=== PATIENT | male | born 1975 | race Caucasian/White ===

== ENCOUNTER 2022-04-05 10:38 | Emergency (ER) | payer OTHER, BC, SELFPAY ==
[2022-04-05 10:39] VITALS: BP 154/95; PULSE 90; RESP 16; TEMP 36.6; O2SAT 98; BMI 32.3
--- NOTE | 2022-04-05 11:10 | RAD_ITS ---
STUDY: X-RAY CHEST REASON FOR EXAM: Male, 47 years old. Chest injury due to trauma. Left-sided chest pain. TECHNIQUE: PA and lateral views of the chest. COMPARISON: None. FINDINGS: The lungs are clear and expanded. Scattered calcified granulomas. There is no demonstrated pleural abnormality. Normal size heart. Calcified bilateral hilar lymph nodes. Normal visualized pulmonary arteries. Normal visualized aortic arch and descending thoracic aorta. Normal visualized thoracic spine. Normal visualized ribs, clavicles, and shoulders. There is no demonstrated abnormality of the visualized soft tissue structures of the upper abdomen. RAD/Chest PA and Lateral IMPRESSION: No acute abnormality is seen. Electronically Signed: Christian Hobbs MD at 11:26 [facility] ,
--- NOTE | 2022-04-05 12:10 | EX.ED.GENINJ ---
HPI History of Present Illness Chief Complaint: Chest Other Detail of Chief Complaint: Worker's Comp. injury Informant: patient Onset/Context/Timing Onset: Today and Hours Mechanism/Context: Blunt Injury, Fall and Work Related Quality of Pain: Dull and Aching Current Severity: Mild Maximum Severity: Mild Associated Symptoms Associated Symptoms: Negative for Parasthesias, Weakness, Loss of function, Inability to ambulate, Loss of consciousness or Amnesia Narrative Narrative: 47-year-old male was on a ladder at work the ladder slipped out from under him as he was falling backwards the ladder fell on top of him then a piece of equipment away 2 to 300 pounds hit the ladder and him both rolled off his chest. No LOC. Note denies any head or neck injury. Complaining of mild chest wall discomfort. Denies any abdominal pain. This occurred at work. Will be Worker's Comp. Prior similar symptoms: No Recent Illness/Hospitalization: No PFSH PFSH Medical History no medical history Home Medications NK 04/05/22 [History Last Taken Unknown] Allergy/AdvReac Type Severity Reaction Status Date / Time No Known Allergies Allergy Verified 04/05/22 11:43 Surgical History History of tonsillectomy and adenoidectomy Social History Smoking Status: Never smoker ROS ROS ED ROS Narrative Denies recent illness. Review of Systems ROS Unobtainable: Denies due to encephalopathy Constitutional Constitutional ED: Denies chills or fever(s) Eyes Eyes: Denies blurry vision ENT ENT ED: Denies ear pain Cardiovascular Cardiovascular: Denies chest pain Respiratory/Chest Respiratory/Chest: Denies cough or dyspnea Gastrointestinal Gastrointestinal: Denies abdominal pain Genitourinary Genitourinary ED: Denies dysuria or hematuria Musculoskeletal Musculoskeletal: Denies arthralgias Integumentary Denies abscess or Abrasions Psychiatric Psychiatric: Denies anxiety Endocrine Endocrinology: Denies cold intolerance Hematologic/Lymphatic Hematologic/Lymphatic: Denies easy bleeding Allergic/Immunologic Allergic/Immunologic ED: Denies mouth swelling or tongue swelling EXAM Physical Exam Narrative Exam Narrative: 47-year-old male vital signs stable afebrile. H EENT exam unremarkable atraumatic. Pupils round reactive light. Dentition intact. No facial scalp trauma. Neck and C-spine nontender full range of motion. Back nontender full range of motion. Spine nontender. Lungs clear to auscultation bilaterally. Heart regular rhythm rate about 90 no murmur. He does have mild chest wall discomfort. No crepitance or subcu air. No bruising. Abdomen soft nontender. No signs of trauma. Pelvic girdle intact. Moving all 4 extremities. Nontender. Full range of motion. 5 out of 5 email designer strength. Dorsi plantarflexion intact. Neurologically is awake and alert with no focal motor deficits. Patient's exam is consistent with chest wall contusion. Const Vital Signs: 04/05/22 10:39 04/05/22 11:45 Temperature 97.8 F Temperature Source Temporal Pulse Rate 90 Respiratory Rate 16 Respiratory Effort Normal Blood Pressure 154/95 H Blood Pressure Mean 114 Pulse Ox 98 Oxygen Delivery Method Room Air Positive well nourished, well developed and obese; Negative for cachectic, contractures or unkempt General Appearance ED: well developed and NAD; Negative for unkempt, cachectic or contractures Nutritional Appearance: obese; Negative for cachectic HEENT atraumatic; Negative for trauma or tenderness Eyes PERRL and EOMs intact bilaterally General Eye ED: Negative for other Neck full ROM General: Negative for tenderness Chest Wall inspection of chest normal Chest Narrative: Mild diffuse chest wall tenderness. No crepitance or subcu air. No bruising. Resp normal respiratory effort and clear to auscultation bilaterally Effort and Inspection: Negative for pain with movement Auscultation: Negative for rales, rhonchi or wheezes Cardio regular rhythm, S1 normal heart sound, S2 normal heart sound and no murmurs Jugular Venous Distention: Negative for other Palpation: Negative for palpable S3 or palpable S4 Rate: regular rate Rhythm: Negative for abnormal rhythm GI normal to inspection, nondistended, normoactive bowel sounds, non-tender, non-distended and no masses Inspection: Negative for abdominal distention Palpation: soft; Negative for tender or guarding Back/Spine normal to inspection and no thoracic nor lumbar tenderness General Back: Negative for CVA tenderness Thoracic Spine / Upper Back: Negative for thoracic spinal tenderness Extremity normal to inspection and full ROM General Extremety ED: Negative for deformity, edema or tenderness General Extremity: Negative for deformity or edema Neuro oriented x3, CN's II-XII intact bilaterally, moves all extremities, no focal motor deficits, no sensory deficits noted and gait normal Crosby Coma Scale: document GCS findings Spontaneous Obeys Commands Oriented 15 Sensorium / Orientation: alert, oriented to person, oriented to place and oriented to time; Negative for orientation impaired, lethargic or stuporous Motor Exam: strength 5/5 throughout; Negative for strength abnormal or muscle tone abnormal Psych mental status grossly normal and thought process normal Appearance: Negative for unkempt Attitude: No agitated Mood & Affect: Negative for depressed, anxious or tearful Skin no rashes or lesions noted, no wounds, skin turgor normal and no jaundice Rashes: No rashes noted Trauma: Negative for abrasion Wounds: Negative for wounds noted MDM MDM MDM Narrative Medical decision making narrative: 47-year-old male Worker's Comp. injury when the ladder slipped out from under him and then the ladder and a piece of equipment hit him. Exam and history are consistent with chest wall contusion. Chest x-ray was obtained 2 views which showed no fracture. The be given Motrin and discharged. He may return to work. Radiography Diagnostic Testing: Clinical Impression(s) from Imaging Studies Chest X-Ray 04/05/22 11:10 IMPRESSION: No acute abnormality is seen. Electronically Signed: Christian Hobbs MD at 11:26 EST , Chest x-ray, 2 views, AP and lateral interpreted both by myself and the radiologist shows no acute abnormality. Normal cardiac silhouette. Normal lungs. No obvious rib or sternal fractures. I did go over the film with the patient. Discharge Plan Triage Chief Complaint: Chest Other ED Provider: Francisco Maurice Dx/Rx/DC Orders Clinical Impression: Encounter related to worker's compensation claim, Fall, Chest wall contusion Instructions: ED Chest Wall Contusion Prescriptions: No Action NK Primary Care Provider: Care Physician,No Primary Referrals: Care Physician,No Primary [Primary Care Provider] - [facility] [Non-Staff] - As Needed Activity Restrictions/Additional Instructions: Ice to chest wall and any sore areas. Motrin for pain and inflammation and Tylenol for pain. You will probably be most sore tomorrow and then this should progressively start getting better. Follow-up with the [facility] clinic as needed. You may return to work. Disposition Disposition: Home, Self Care
== END 2022-04-05 12:37 | disposition home or self-care (01) ==
PROVIDERS: Emergency Provider Emergency Medicine; Visit Provider Emergency Medicine
DX: S20.20XA Contusion of thorax, unspecified, initial encounter (principal); E66.9 Obesity, unspecified; W11.XXXA Fall on and from ladder, initial encounter; Y99.0 Civilian activity done for income or pay
CPT/HCPCS: 99281; 71046; 99282

== ENCOUNTER 2024-10-06 20:00 | Emergency (ER) | payer BC, SELFPAY ==
[2024-10-06 20:01] VITALS: BP 156/94; PULSE 99; RESP 18; TEMP 37.3; O2SAT 96
--- NOTE | 2024-10-06 20:10 | RAD_ITS ---
PROCEDURE: KNEE 4 OR MORE VIEWS 10/06/2024 REASON FOR EXAM: KNEE INJURY TECHNIQUE: KNEE 4 OR MORE VIEWS, right COMPARISON: None. FINDINGS: Bones: No obvious acute fracture. No aggressive osseous lesions. Joints: Normal alignment. Mild degenerative changes. Effusion: Moderate sized suprapatellar hematoma. Soft tissues: Soft tissue swelling. RAD/Knee 4 or More Views IMPRESSION: No acute fracture. Moderate-sized suprapatellar hematoma. Reading Location: [id number]
[2024-10-06 20:28] VITALS: BMI 34.4
--- OUTSIDE RECORDS SUMMARY | 2024-10-06 21:06 | XMS RPT_ITS | CCD ---
Author Organization [facility] Inform ion Partnership [facility] Care Team Providers Care Financial Advisor Name Role Phone Omer Fong Attending Unavailable Care Physician, No Primary Primary Care Unava ilable Care Physician, No Primary Referring Unava ilable Care Physician, No Primary Referring Dayamiva Omer Mcgee Attending Unavailable Care Physician, No Primary Primary Care Dayamiva Omer Mcgee Attending Unavailable Care Physician, No Primary Primary Care Unava ilable Care Physician, No Primary Referring Dayamiva Omer Mcgee Attending Unavailable Care Physician, No Primary Primary Care Unava ilable Care Physician, No Primary Referring Unava ilable Unavailable Primary Care Provider Unavailabl e Medications Current Medications Medication Drug Class(es) Dates Sig (Normalized) Sig (Original) cyclobenzaprine hydrochloride 10 mg oral tablet (1 source) Muscle Relaxant Start: 07-11-2020 take 1 tablet by mouth three times daily as needed for pain cyclobenzaprine (FLEXERIL) 10 mg tablet Indications: Cervical radiculopathy Take 1 tablet by mouth three times daily as needed for Muscle Spasm or Pain. 30 tablet 07/11/2020 Active Ibuprofen (1 source) Nonsteroidal Anti-inflammatory Drug IBUPROFEN ORAL Take by mouth. Active Omeprazole (1 source) Proton Pump Inhibitor OMEPRAZOLE (PRILOSEC ORAL) Take by mouth. Active Problems Active Problems Problem Classification Problem Date Documented Da te Episodic/Chronic Administrative/social admission (1 source) Patient encounter status; Translations: [Encounter for examination for insurance purposes] Episodic E Codes: Fall (1 source) Fall; Translations: [Unspecified fall, initial encounter] Episodic Immunizations and screening for infectious disease (1 source) Encounter for immunization; Translations: [Encounter for immunization] Onset: 08-17-2023 Episodic Open wounds of extremities (2 sources) Laceration without foreign body of right hand, initial encounter; Translations: [Laceration without foreign body of right hand, initial encounter] Onset: 09-02-2023 Episodic Superficial injury; contusion (1 source) Contusion of chest; Translations: [Contusion of unspecified front wall of thorax, initial encounter] Episodic Past or Other Problems Problem Classification Problem Date Documented Da te Episodic/Chronic Lymphadenitis (1 source) Lymphadenopathy; Translations: [Enlarged lymph nodes, unspecified] Onset: 06-13-2006 10-27-2023 Episodic Results Test Name Value Interpretation Reference Range Facility Urgent Care Visit Reporton 0 08-22-2023 Urgent Care Visit Report [facility] [address], [address] [place] [address] OFFICE VISIT Date of Service: 08/22/23 MR#: [id number] Acct: [id number] Name: CÉSAR DANIEL Rep #: [id number] : 1975 Provider: MEGHA Guzman Age/Sex: 48/M Location: [facility] Status: Signed Intake Vital Signs 08/09/23 08:30 08/22/23 13:00 Height 5 ft 7.5 in 5 ft 7 in Weight: 213 lb 213 lb BMI 32.8 33.3 BP 130/86 H 128/84 H Blood Pressure Location Lt brachial Rt brachial Position Sitting Sitting Respiration 12 16 Pulse 84 74 Pulse Source Monitor Monitor Temp 98.7 F 97.8 F Temp Source Temporal Temporal Pulse Oximetry (%) 97 98 Oxygen Delivery Method room air room air Intake Visit Reasons: SUTRUE REMOVAL/R HAND/OH FARMS Chief Complaint: 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 Patient notes while performing his normal job duties attempted to stop a falling product with a blade on it and cutting his right palmar hand in the process. He has been compliant with wound care noting all 7 SI sutures placed on date of injury were intact though admitting to SI sutures fell out over the course the last 3 or 4 days. Wound continues to be well-approximated and has been working without restrictions (keeping wound clean dry and covered at all times) without difficulty. He notes no localized erythema or warmth or swelling or tenderness or discharge from laceration site, stating is well-approximated without difficulties. No dtqs-qca-slihqwi products taken to assist. No loss of sensation or strength or function distal to injury site he so states. No other associated symptoms and no other alleviating/aggravatin g factors. ROS Const Constitutional: No other (As above) Exam Const General: cooperative, healthy appearing and no acute distress Orientation: alert, awake and oriented x3 Resp Effort Inspection: normal respiratory effort and able to speak in complete sentences Cardio Rate: regular rate Pulses: radial pulses present Skin General: no rashes or lesions noted Neuro General: patient alert, patient awake and patient oriented x3 Cognition: normal cognition Speech: speech normal Extrem General: full ROM, capillary refill normal and normal exam except as noted (R palmar hand lac. well- healed; remaining 5 SI sutures removed w/o c/o) Psych Appearance: grossly normal Mental Status: mental status grossly normal Mood: congruent mood Affect: normal affect Speech and Movement: speech and movement normal Attitude: cooperative Coding Level of Care Code Off vis,est,level 2 Diagnoses Laceration of right hand S61.411A Assessment and Plan Assessment and Plan (1) Laceration of right hand: Status: Acute Plan: Released without restrictions at this time as noted on today's [employer] though encouraging patient to keep covered for an additional week for protective measures only. Follow-up in our clinic on an as-needed basis only. Patient states acknowledging understanding all the above. This note was generated with Qgivation software. It may contain incorrect words, spelling, and punctuation that were not noted in checking the note before signing. 08/22/23 1523 Date Omer Lloyd Signature: Date (if applicable) CC: Normal [facility] Virtual Office Visiton 08-[address] [facility] [address] [address] OFFICE VISIT Date of Service: 08/17/23 MR#: [id number] Acct: [id number] Patient: CÉSAR DANIEL Rep #: [id number] : 1975 Provider: MEGHA Guzman Age/Sex: 48/M Location: [facility] Status: Signed Intake Vital Signs 08/09/23 08:30 Height 5 ft 7.5 in Weight: 213 lb BMI 32.8 BP 130/86 H Blood Pressure Location Lt brachial Position Sitting Respiration 12 Pulse 84 Pulse Source Monitor Temp 98.7 F Temp Source Temporal Pulse Oximetry (%) 97 Oxygen Delivery Method room air Intake Visit Reasons: 1 W FU/[place] FARM PKG Allergies No Known Allergies Allergy (Verified 08/09/23 08:31) PFSH Medical History (Updated 08/09/23 @ 08:51 by MEGHA Quintero) Laceration of right hand Surgical History History of tonsillectomy and adenoidectomy Social History Smoking Status: Never smoker HPI HPI Details: Patient was informed that today's visit charges, even if billed to insurance may still be the patient's responsibility to pay. CÉSAR DANIEL, is a 48 M who presents to the office today by phone for f/u status post right palmar hand laceration suffered on 08/09/2023. Patient notes while performing his normal job duties attempted to stop a falling product with a blade on it and cutting his right palmar hand in the process. He has been compliant with wound care noting all 7 SI sutures placed on date of injury are intact and approximating wound well and has been working without restrictions (keeping wound clean dry and covered at all times) without difficulty. He notes no localized erythema or warmth or swelling or tenderness or discharge from laceration site, stating is well-approximated without difficulties. No pmeg-asq-vksdrrx products taken to assist. No loss of sensation or strength or function distal to injury site he so states. No other associated symptoms and no other alleviating/aggravatin g factors. ROS Const Constitutional: No other (As above) Exam Details: Details:: Exam was limited due to phone visit with no video. Coding Level of Care Code Level 1 Telephone Diagnoses Laceration of right hand S61.411A Assessment and Plan Assessment and Plan (1) Laceration of right hand: Status: Acute Plan: Assessment and Plan Assessment and Plan (1) Laceration of right hand: Status: Acute Plan: Return to work w/o restrictions as noted on today's [employer]. Continue twice daily wound care as instructed today. Follow-up in the now clinic in 5 days for reassessment and likely suture removal, sooner should symptoms worsen or any other concerns develop. Patient states acknowledging understanding on the above. 08/17/23 1301 Date Omer Worthyign Signature: Date (if applicable) CC: Normal [facility] Urgent Care Visit Reporton 0 08-16-2023 Urgent Care Visit Report [facility] [address] , [address] [place] [address] OFFICE VISIT Date of Service: 08/17/23 MR#: [id number] Acct: [id number] Name: CÉSAR DANIEL Rep #: [id number] : 1975 Provider: MEGHA Guzman Age/Sex: 48/M Location: [facility] Status: Signed with Addenda ADDENDUM by MEGHA Guzman on 08/17/23 at 1256 HPI Details: . 08/17/23 1256 Date Omer Mata cc: * Signed Intake Vital Signs 08/09/23 08:30 Height 5 ft 7.5 in Weight: 213 lb BMI 32.8 BP 130/86 H Blood Pressure Location Lt brachial Position Sitting Respiration 12 Pulse 84 Pulse Source Monitor Temp 98.7 F Temp Source Temporal Pulse Oximetry (%) 97 Oxygen Delivery Method room air Intake Visit Reasons: 1 W FU/[place] FARM PKG Allergies No Known Allergies Allergy (Verified 08/09/23 08:31) PFSH Medical History (Updated 08/09/23 @ 08:51 by MEGHA Quintero) Laceration of right hand Surgical History History of tonsillectomy and adenoidectomy Social History Smoking Status: Never smoker HPI HPI Details: CÉSAR DANIEL, is a 48 M who presents to the office today for Coding Level of Care Code No Charge 08/17/23 0638 Date Omer Lloyd Signature: Date (if applicable) CC: Normal [facility] Urgent Care Visit Reporton 0 08-09-2023 Urgent Care Visit Report [facility] [address], [address] [place], [place] [id number] OFFICE VISIT Date of Service: 08/09/23 MR#: [id number] Acct: [id number] Name: CÉSAR DANIEL Rep #: [id number] : 1975 Provider: MEGHA Guzman Age/Sex: 48/M Location: [facility] Status: Signed Intake Vital Signs 04/05/22 10:39 08/09/23 08:30 Height 5 ft 8 in 5 ft 7.5 in Weight: 213 lb BMI 32.8 BP 130/86 H Blood Pressure Location Lt brachial Position Sitting Respiration 12 Pulse 84 Pulse Source Monitor Temp 98.7 F Temp Source Temporal Pulse Oximetry (%) 97 Oxygen Delivery Method room air Intake Visit Reasons: R HAND/PALM/LACERATION/O H FARM PKG Allergies No Known Allergies Allergy (Verified 08/09/23 08:31) [facility] Medical History (Updated 08/09/23 @ 08:51 by MEGHA Quintero) Laceration of right hand Surgical History History of tonsillectomy and adenoidectomy Social History Smoking Status: Never smoker HPI HPI Details: CÉSAR DANIEL, is a 48 M who presents to the office today for initial evaluation status post right palmar hand laceration suffered while at work immediately prior to arrival here today. Patient notes well performing his normal job duties attempted to stop a falling product with a blade on it and cutting his right palmar hand in the process. Last Td unknown. Xccpm-dirl-pmsxmtkv. PMH NC. No mnjd-uff-jvhvwpt products taken to assist. No loss of sensation or strength or function distal to injury site he so states. No other associated symptoms and no other alleviating/aggravatin g factors. ROS Const Constitutional: No other (As above) Exam Const General: cooperative, healthy appearing and no acute distress Orientation: alert, awake and oriented x3 Resp Effort Inspection: normal respiratory effort and able to speak in complete sentences Cardio Rate: regular rate Pulses: radial pulses present Skin General: no rashes or lesions noted Trauma: laceration (3.5cm L-shaped dermal depth; see procedure) Neuro General: patient alert, patient awake and patient oriented x3 Cognition: normal cognition Speech: speech normal Extrem General: normal to inspection Psych Appearance: grossly normal Mental Status: mental status grossly normal Mood: congruent mood Affect: normal affect Speech and Movement: speech and movement normal Attitude: cooperative Office Procedures Laceration Repair Procedure performed by: Omer Mata Explained risks and benefits to parent: Yes Informed consent given: Yes Consent signed: No (verbal consent given) Sedation: No Anesthesia: 1% lidocaine (Field block 3 mL) Irrigation: saline Preparation: chlorhexidine Wound exploration: none Deep closure: No Skin closure: nylon (4-0 Ethilon x 7 SI) Topical treatment: mupiricin Tetanus toxoid ordered: Yes Patient tolerated procedure: well Complications: No Coding Level of Care Code Attention Cr Diagnoses Laceration of right hand S61.411A Comment 50605, 82612, Tdap Assessment and Plan Assessment and Plan (1) Laceration of right hand: Status: Acute Plan: Return to work restrictions as noted on today's [employer]. Tdap updated today. See procedure above. Twice daily wound care as instructed today. Follow-up in the now clinic in 8 days for reassessment and likely suture removal, sooner should symptoms worsen or any other concerns develop. Patient states acknowledging understanding on the above. This note was generated with FID3 dictation software. It may contain incorrect words, spelling, and punctuation that were not noted in checking the note before signing. Orders: Orders Tdap Immunization Today Z23 - Encounter for immunization Medications: New Adacel(Tdap Adolesn/Adult)(PF) (diph,pertuss(acel),te t vac(PF)) 0.5 mL IM ONCE 0.5 mL 0RF NS Z23 - Encounter for immunization Clinical Quality Measures High Blood Pressure Screening/Follow Up High Blood Pressure follow-up Instructions: Recommended Blood Pressure Follow-Up Interventions: *Normal BP: No follow-up required for SBP < 120 mmHg and DBP < 80 mmHg: *Elevated BP: Patients with SBP of 120-129 mmHg and DBP < 80 mmHg: *Referral to Alternate/Primary Care Health Ad Operations Intern OR * Follow-up with rescreen in 2 to 6 months AND recommend nonpharmacologic interventions * First Hypertensive BP Reading: Patients with one elevated reading of SBP >=130 mmHg OR DBP >= 80 mmHg: *Referral to Alternate/Primary Care Health Professional OR *Follow-up with rescreen in >1 day and < 4 weeks AND recommend nonpharmacologic interventions *Second Hypertensive BP Reading: *Second Hypertensive BP Readi (more content not included)... Normal [facility] CNTHERAPYon 09-23-2020 CNTHERAPY OT/PT/Speech Visit (PTWS) FREDYCÉSAR ([id number]) 1975 M Date Time Provider Department 09/23/20 3:15 PM MIKHAIL DANIEL PTWS Date Time Provider Department Center 09/23/2020 3:15 PM [id number], COREY PTWS [facility] Reason for Visit: Physical Therapy [503] PT Discharge [752] Primary Visit Diagnosis:Cervical radiculopathy [M54.12] Allergies As of Date: 09/23/2020 (No Known Allergies) Date Reviewed: 07/11/2020 Reviewed by: Aidan ([facility]) Luis Miguel - Fully Assessed Prescriptions as of 12/12/2020 - cyclobenzaprine (FLEXERIL) 10 mg tablet Take 1 tablet by mouth three times daily as needed for Muscle Spasm or Pain. - IBUPROFEN ORAL Take by mouth. - OMEPRAZOLE (PRILOSEC ORAL) Take by mouth. Progress Notes: Mikhail Daniel PT 09/23/2020 3:57 PM Signed Episode Visit Count: 4 Therapist That Will Oversee The Plan Of Care: Mikhail Daniel Start of Care Date: 08/25/20 Onset Date: 07/26/20 Patient Identified by Name and Date of : Yes REHABILITATION AND SPORTS THERAPY PHYSICAL THERAPY TREATMENT NOTE ASSESSMENT: César Daniel demonstrated some neck stiffness on the L. The patient will continue to benefit from ongoing skilled physical therapy for progression towards therapy goals. PLAN FOR NEXT VISIT: Assess pt SUBJECTIVE: Patient Reason for Visit: Pt states that when he is still then his pain will come on in the neck. Pain: Pain Pain Location: Neck - Left Post Treatment Pain Post Treatment Pain Location: Neck - Left OBJECTIVE MEASURES WITH LEVEL OF FUNCTION: UPA onto L C5/C6 facet joint causes some faint radicular pain and reveals some hypermobility of the joint Cervical flexion WNL TREATMENT: Therapeutic Exercise: 1: L SB cervical iso 3x10 reps holding 5 sec each 2: Resisted R cervical rotations GTB 3x12 reps 3: Row at machine 3 plates 6x10 reps 4: Cervical SB iso at 40 deg of SB x5 reps holding 3 sec Skilled Intervention: Patient was educated in proper exercise technique and purpose for exercises. Skilled judgment was provided in selection of appropriate interventions. Provided written instruction for home exercise program to facilitate proper performance and compliance. Billing: [facility]: Therapeutic Exercise (51956): 1:1 time: 38 minutes (3 units: 38-52 mins) Total time / Length of visit: 38 minutes QUIQUE Ocampo PT 12/12/2020 11:06 AM Signed 12/12/2020 [facility] REHABILITATION AND SPORTS THERAPY PHYSICAL THERAPY DISCONTINUANCE OF CARE Plan of Care Period: Start of Care Date: 08/25/20 Last Visit Date: 09/23/2020 Therapy Program: The following is a summary of the interventions provided for this episode of care; Therapeutic exercise Assessment: Based on most recent visit, patient was progressing as expected toward functional goals based on home exercise program compliance. Unable to formally assess goal achievement, as patient has not returned to therapy or scheduled additional follow-up appointments. Reason for Discontinuation of Care: Patient has not returned to therapy or scheduled additional follow-up appointments. Mikhail Daniel PT Normal [facility] CNTHERAPYon 09-16-2020 CNTHERAPY OT/PT/Speech Visit (PTWS) CÉSAR DANIEL ([id number]) 1975 M Date Time Provider Department 09/16/20 3:15 PM FREDY MIKHAIL PTWS Date Time Provider Department Center 09/16/2020 3:15 PM [id number] MIKHAIL PTWS [facility] Reason for Visit: Physical Therapy [503] Primary Visit Diagnosis:Cervical radiculopathy [M54.12] Allergies As of Date: 09/16/2020 (No Known Allergies) Date Reviewed: 07/11/2020 Reviewed by: Aidan ([facility]) Luis Miguel - Fully Assessed Prescriptions as of 09/16/2020 Sig: CYCLOBENZAPRINE 10 MG TABLET Take 1 tablet by mouth three * IBUPROFEN ORAL Take by mouth. PRILOSEC ORAL Take by mouth. Progress Notes: Mikhail Daniel PT 09/16/2020 4:01 PM Signed Episode Visit Count: 3 Therapist That Will Oversee The Plan Of Care: Mikhail Daniel Start of Care Date: 08/25/20 Onset Date: 07/26/20 Patient Identified by Name and Date of : Yes REHABILITATION AND SPORTS THERAPY PHYSICAL THERAPY TREATMENT NOTE ASSESSMENT: César Daniel demonstrated pain in the sub-occipital muscles The patient will continue to benefit from ongoing skilled physical therapy for progression towards therapy goals. PLAN FOR NEXT VISIT: Assess thoracic spine mobility. Trap strength. SUBJECTIVE: Patient Reason for Visit: Pt states bhe did a lot of overhead activities and neck extension without increased radicular symptoms this past week Pain: Pain Pain Location: Neck - Left Post Treatment Pain Post Treatment Pain Location: Neck - Left OBJECTIVE MEASURES WITH LEVEL OF FUNCTION: TREATMENT: Therapeutic Exercise: 1: Neck flexion stretch 3x30 seconds 2: Prone opposite arm leg x10 each side Skilled Intervention: Patient was educated in proper exercise technique and purpose for exercises. Provided written instruction for home exercise program to facilitate proper performance and compliance. Correct performance of therapeutic exercises was facilitated with verbal and visual cuing. Manual Therapy: 1: Pt in supine with praspinal pressure firm pressure 2: C2 mob grade 2 x20 pt in supine 3: S-O release x5 min 4: Deep pressure to multifidi bilaterally pt in supine 5: Self massage using ball vs wall x5 min Skilled Intervention: Manual skills to improve joint mobility, ROM, and decrease pain. Utilized anatomy knowledge of the therapist, and assessment of patient's response to intervention. Ruizing: [facility]: Therapeutic Exercise (74712): 1:1 time: 8 minutes (1 unit: 8-22 mins) Manual Therapy (50951): 1:1 time: 31 minutes (2 units: 23-37 mins) Total time / Length of visit: 39 minutes Mikhail Daniel PT Normal [facility] CNTHERAPYon 09-09-2020 CNTHERAPY OT/PT/Speech Visit (PTWS) CÉSAR DANIEL ([id number]) 1975 M Date Time Provider Department 09/09/20 3:15 PM MIKHAIL DANIEL Date Time Provider Department Center 09/09/2020 3:15 PM [id number], COREY PTRUTH [facility] Reason for Visit: Physical Therapy [503] Primary Visit Diagnosis:Cervical radiculopathy [M54.12] Allergies As of Date: 09/09/2020 (No Known Allergies) Date Reviewed: 07/11/2020 [facility]ed [facility] Fully Assessed Prescriptions as of 09/09/2020 Sig: CYCLOBENZAPRINE 10 MG TABLET Take 1 tablet by mouth three * IBUPROFEN ORAL Take by mouth. PRILOSEC ORAL Take by mouth. Progress Notes: Mikhail Daniel PT 09/09/2020 4:06 PM Signed Episode Visit Count: 2 Therapist That Will Oversee The Plan Of Care: Mikhail Daniel Start of Care Date: 08/25/20 Onset Date: 07/26/20 Patient Identified by Name and Date of : Yes REHABILITATION AND SPORTS THERAPY PHYSICAL THERAPY TREATMENT NOTE ASSESSMENT: César Daniel demonstrated increased radicular pain with prone DNE testing. The patient will continue to benefit from ongoing skilled physical therapy for progression towards therapy goals. PLAN FOR NEXT VISIT: Assess symptoms and reaction to exercise. Try SNAG with extension. SUBJECTIVE: Patient Reason for Visit: Pt states that he does get the tingling in the hand a little less. Pt feels 50% improved. Pain: Pain Pain Level: 1 Pain Location: Neck - Left Post Treatment Pain Post Treatment Pain Level: 2 Post Treatment Pain Location: Neck - Left Post Treatment Pain Description: Aching OBJECTIVE MEASURES WITH LEVEL OF FUNCTION: L side-bending and L rotation is limited in the cervical region and overpressure with L rotation brings on familiar symptoms. TREATMENT: Therapeutic Exercise: 1: DNF x30 seconds 2: DNE x30 seconds (Increased radicular symptoms) 3: R side-lying, Cervical L SB 2x10 reps 4: R cervical SB in seated position Skilled Intervention: Patient was educated in proper exercise technique and purpose for exercises. Correct performance of therapeutic exercises was facilitated with verbal and visual cuing. Billing: [facility]: Therapeutic Exercise (01577): 1:1 time: 40 minutes (3 units: 38-52 mins) Total time / Length of visit: 40 minutes Mikhail Daniel PT Normal [facility] CNTHERAPYon 08-25-2020 CNTHERAPY OT/PT/Speech Visit (PTWS) CÉSAR DANIEL ([id number]) 1975 M Date Time Provider Department 08/25/20 3:00 PM MIKHAIL DANIEL PTWS Date Time Provider Department Center 08/25/2020 3:00 PM [id number], MIKHAIL PTWS [facility] Reason for Visit: PT Gailal [747] Visit Diagnosis:Cervical radiculopathy [M54.12] Allergies As of Date: 08/25/2020 (No Known Allergies) Date Reviewed: 07/11/2020 Reviewed by: Aidan Jackson - Fully Assessed Prescriptions as of 08/25/2020 Sig: CYCLOBENZAPRINE 10 MG TABLET Take 1 tablet by mouth three * IBUPROFEN ORAL Take by mouth. PRILOSEC ORAL Take by mouth. Progress Notes: Mikhail Fredy PT 08/25/2020 3:55 PM Signed Episode Visit Count: 1 Therapist That Will Oversee The Plan Of Care: Mikhail Daniel Start of Care Date: 08/25/20 Onset Date: 07/26/20 Patient Identified by Name and Date of : Yes REHABILITATION AND SPORTS THERAPY PHYSICAL THERAPY EVALUATION PLAN OF CARE: Assessment: César Daniel presents with the chief complaint of L sided neck pain with radicular symptoms. Pt demonstrates a positive Spurling's on the L and pain relief with opening L cervical facet joints. C8 dermatome and myotome affected on the L compared to R. He presents with impairments of decreased neck ROM, difficulty with work duties due to pain and fair posture. He may benefit from skilled therapy services to improve the above mentioned impairments. Prognosis: Good Good due to: current objective clinical presentation;good overall health status;within-session changes at evaluation Goals for Episode of Care: created on 08/25/20 through 10/06/20 Independent in a Home Exercise Program. Restore pain free cervical ROM to WNL to allow for ease of work dtuies. Pt will be able to perform all work duties without increased symptoms in 6 weeks Patient Goals: Pt wants to manage symptoms. Planned Interventions, Frequency, and Duration: Current Frequency: 1x/week Duration: 4 weeks Total Number of Visits Planned: 4 Planned Treatment Interventions: Therapeutic exercise (18424);Neuromuscular re-education (20109);Manual therapy (59243);Therapeutic activities (91681);Patient/Family /Caregiver Education PLAN FOR NEXT VISIT: Progress opening L cervical facets manually and with exercise Patient demonstrates good understanding of plan of care and treatment. The above goals and plan of care were discussed and agreed upon by patient/family. SUBJECTIVE: César Daniel is a 45 year old male seen today for Pt states that if he looks up it will go down the L arm. Pt works for maintainence. Pt woke up and felt something and then he had constant pain. Pt states that the 4-5th fingers usually feel numb. Patient Goals: Pt wants to manage symptoms. Prior Level of Function: Independent without limitations Intake Information: Prescription present [place] Vertebral Fracture Clinical Reasoning: No identified risk factors Cancer Clinical Reasoning: No identified risk factors. Infection Clinical Reasoning: No identified risk factors. Cervical Arterial Dysfunction Clinical Reasoning: No identified risk factors [place] - Cervical Cancer Clinical Reasoning: No identified risk factors. Infection Clinical Reasoning: No identified risk factors. Cervical Arterial Dysfunction Clinical Reasoning: No identified risk factors Pain: Pain Pain Level: 3 Pain Location: Neck - Left Description: Sharp Post Treatment Pain Post Treatment Pain Level: (Not rated) Post Treatment Pain Location: Neck - Left;Arm - Left Post Treatment Pain Description: Aching PROMIS Scales T-scores: mean of general population = 50. 5 points is clinically meaningfully difference Percentiles provide an indication of how the patient's score ranks in relation to the general population. Higher percentile rankings indicate better function/quality of life. 50th percentile is the average of the general population and indicates half of respondents had a worse score. T-scores: mean of general population = 50. 5 points is clinically meaningfully difference Percentiles provide an indication of how the patient's score ranks in relation to the general population. Higher percentile rankings indicate better function/quality of life. 50th percentile is the average of the general population and indicates half of respondents had a worse score. OBJECTIVE MEASURES WITH LEVEL OF FUNCTION: Sensation - Cervical Spine Cervical Spine Sensation: Dermatomes Cervical Spine Sensation - Dermatomes: C8 5th Digit Cervical Spine ROM Cervical ROM : Limitation AROM Cervical Flexion AROM: Normal Cervical Extension AROM: Minimal limitation;Peripherali zing Cervical Side-Bend Right AROM: Normal;Decreased pain Cervical Side-Bend Left AROM: Minimal limitation;Peripherali zing Cervical Rotation Right AROM: Normal Cervical Rotation (more content not included)... Normal [facility] Tru 07-14-2020 MIRTHAN Telephone (FAMPWS) CÉSAR DANIEL ([id number]) 1975 M Date Time Provider Department 07/14/20 AIDAN JACKSON (MIRTHA) MAXI During your visit today, we recorded the following information about you: Aidan Jackson APRN.CNP 07/14/2020 11:57 AM Signed Please inform patient that his cholesterol is on the higher side. I would recommend increasing his exercise, improving diet. Recheck cholesterol in 6 months. ELLEN Pedraza Ma 07/14/2020 1:17 PM Signed Letter mailed to pt home of results. Katiana Pierre MA Allergies As of Date: 07/14/2020 (No Known Allergies) Date Reviewed: 07/11/2020 Reviewed by: Aidan (Mirtha) Luis Miguel - Fully Assessed Reason for Visit: Results [95] Primary Visit Diagnosis:Hyperlipidem ia, mixed [E78.2] Order(s):LIPID PANEL BASIC [SQLIPB] Order #: [id number] FUTURE Prescriptions as of 07/14/2020 Sig: CYCLOBENZAPRINE 10 MG TABLET Take 1 tablet by mouth three * IBUPROFEN ORAL Take by mouth. PRILOSEC ORAL Take by mouth. Problem List As Of Date 07/14/2020 Noted Resolved ENLARGEMENT LYMPH NODES [R59.9] 06/13/2006 Letter Text Encounter Status:Closed by KATIANA PIERRE MA on 07/14/20 Normal [facility] Comp Metabolic Panelon 07-12 Albumin [Mass/Vol] 4.5 g/dL Normal 3.9-4.9 [facility] Comment on above: Performed By: #### L IPB, CMP ####[facility] [address], [place] [phone] ALP [Catalytic activity/Vol] 70 U/L Normal 38-113 [facility] Comment on above: Performed By: #### L IPB, CMP ####[facility] [place], [place] [phone] ALT [Catalytic activity/Vol] 35 U/L Normal 10-54 [facility] Comment on above: Performed By: #### L IPB, CMP ####[place] [address], [place] [phone] Anion gap [Moles/Vol] 9 mmol/L Normal 9-18 [facility] Comment on above: Performed By: #### L IPB, CMP ####[place] [address], [place] [phone] AST [Catalytic activity/Vol] 24 U/L Normal 14-40 [facility] Comment on above: Performed By: #### L IPB, CMP ####[address] [phone] Bilirubin [Mass/Vol] 0.5 mg/dL Normal 0.2-1.3 [facility] Comment on above: Performed By: #### L IPB, CMP ####[place] [address], [place] [phone] Calcium [Mass/Vol] 9.5 mg/dL Normal 8.5-10.2 [facility] Comment on above: Performed By: #### L IPB, CMP ####[place] [address], [place] [phone] Chloride [Moles/Vol] 106 mmol/L High 97-105 [facility] Comment on above: Performed By: #### L IPB, CMP ####[place] [address] [address], [place] [phone] CO2 [Moles/Vol] 26 mmol/L Normal 22-30 [facility] Comment on above: Performed By: #### L IPB, CMP ####[place] [address], [place] [phone] Creatinine [Mass/Vol] 0.93 mg/dL Normal 0.73-1.22 [facility] Comment on above: Performed By: #### L CORINNE, CMP ####[facility], [place] [phone] eGFR- Amer. >60 Normal [facility] Comment on above: Performed By: #### L CORINNE, CMP ####[facility], [place] [phone] eGFR-All Other Races >60 Normal [facility] Comment on above: Result Comment: eGFR (Estimated GFR) Units of measure: mL/min/1.73 meters squared eGFR is derived from the reexpressed MDRD Study equation using the following parameters: serum creatinine, age, gender and race. The creatinine assay has been calibrated to be traceable to IDMS. An eGFR <60 mL/min/1.73m2 for >3 months is consistent with chronic kidney disease. Refer to KDOQI guidelines for clinical interpretation. In patients with unstable renal function, e.g. those with acute kidney injury, the eGFR may not accurately reflect actual GFR. Performed By: #### L CORINNE, CMP ####[place] [address], [place] [phone] Glucose [Mass/Vol] 86 mg/dL Normal 74-99 [facility] Comment on above: Result Comment: The [place] Diabetes [employer] (ADA) provides guidance for cutoff values for fasting glucose and random glucose. The ADA defines fasting as no caloric intake for at least 8 hours. Fasting plasma glucose results between 100 to 125 mg/dL indicate increased risk for diabetes (prediabetes). Fasting plasma glucose results greater than or equal to 126 mg/dL meet the criteria for diagnosis of diabetes. In the absence of unequivocal hyperglycemia, results should be confirmed by repeat testing. In a patient with classic symptoms of hyperglycemia or hyperglycemic crisis, random plasma glucose results greater than or equal to 200 mg/dL meet the criteria for diagnosis of diabetes. Reference: Standards of Medical Care in Diabetes 2016, [place] Diabetes [employer]. Diabetes Care. 2016.39(Suppl 1). Performed By: #### L CORINNE, CMP ####[place] [address] [place], [place] [phone] Potassium [Moles/Vol] 4.2 mmol/L Normal 3.7-5.1 [facility] Comment on above: Performed By: #### L IPB, CMP ####[place] [address] [place], [place] [phone] Protein [Mass/Vol] 7.3 g/dL Normal 6.3-8.0 [facility] Comment on above: Performed By: #### L IPB, CMP ####[place] [address] [place], [place] [phone] Sodium [Moles/Vol] 141 mmol/L Normal 136-144 [facility] Comment on above: Performed By: #### L IPB, CMP ####[place] [address] [place], [place] [phone] Urea nitrogen [Mass/Vol] 8 mg/dL Low 9-24 [facility] Comment on above: Performed By: #### L IPB, CMP ####[place] [address], [place] [phone] Lipid Panel, [place] 021 Cholesterol [Mass/Vol] 209 mg/dL High <200 [facility] Comment on above: Result Comment: <200 mg/dL, Desirable 200-239 mg/dL, Borderline high >239 mg/dL, High Performed By: #### L IPB, CMP ####[place] [address] [place], [place] [phone] Cholesterol in HDL [Mass/Vol] 29 mg/dL Low >39 [facility] Comment on above: Result Comment: 40-5 9 mg/dL, Acceptable >59 mg/dL, High: Negative risk factor for coronary heart disease <40 mg/dL, Low: Positive risk factor for coronary heart disease Performed By: #### L IPB, CMP ####[place] [address] [place], [place] [phone] Cholesterol in LDL [Mass/Vol] 164 mg/dL High <100 [facility] Comment on above: Result Comment: <100 mg/dL, Optimal 100-129 mg/dL, Near optimal/above optimal 130-159 mg/dL, Borderline high 160-189 mg/dL, High >189 mg/dL, Very high Secondary prevention optimal LDL Cholesterol levels are recommended to be < 70 mg/dL Performed By: #### L IPB, CMP ####[facility], [place] [phone] Fasting Time 13 hrs Normal [facility] Comment on above: Performed By: #### L IPB, CMP ####[address] [phone] LDL:HDL Ratio 5.66 High <2.54 [facility] Comment on above: Result Comment: Refe rence: 1. National Cholesterol Education Program ATP III Guideline At-A-Glance Quick Desk Reference: National Heart, Lung, and Blood [place]. National Institutes of Health. 2001: NIH Publication No. 01-3305. 2. An International Atherosclerosis Society position paper: global recommendations for the management of dyslipidemia: executive summary, Atherosclerosis. 2014: 232(2):410-413. Performed By: #### L IPB, CMP ####[address] [phone] Non HDL Cholesterol 180 mg/dL High <130 [facility] Comment on above: Result Comment: <130 mg/dL, Optimal 130-159 mg/dL, Near optimal/above optimal 160-189 mg/dL, Borderline high 190-219 mg/dL, High >219 mg/dL, Very high Secondary prevention optimal non HDL Cholesterol levels are recommended to be < 100 mg/dL Performed By: #### L IPB, CMP ####[place] [address], [place] [phone] TC:HDL Ratio 7.21 High <5.10 [facility] Comment on above: Performed By: #### L IPB, CMP ####[place] [address], [place] [phone] Triglyceride [Mass/Vol] 81 mg/dL Normal <150 [facility] Comment on above: Result Comment: <150 mg/dL, Normal 150-199 mg/dL, Borderline high 200-499 mg/dL, High >499 mg/dL, Very high Performed By: #### L IPB, CMP ####[facility] [address], [place] [phone] VLDL Cholesterol 16 mg/dL Normal <30 [facility] Comment on above: Performed By: #### L IPB, CMP ####[facility] [address], [place] [phone] CNOVon 07-11-2020 CNOV Office Visit (FAMPWS ) CÉSAR DANIEL ([id number]) 1975 M Date Time Provider Department 07/11/20 12:20 PM AIDAN JACKSON ([facility]) FAMPWS During your visit today, we recorded the following information about you: Temperature Pulse Respiration Blood pressure 98.6 degrees 82/minute 16/minute 112/82 Weight Height 97.5 kg 1.715 m Aidan Jackson APRN.CNP 07/11/2020 12:48 PM Signed Chief Complaint Patient presents with: [facility] HPI César Daniel is a 45 year old male who presents here today for establish care visit. Not followed by a previous PCP. Believes that he had a tdap about 6 years ago. Got it at [facility]. Main complaint is neck pain. Started about 1 month ago. Nothing that occurred. Woke up with it. Went to [facility]. Was given prednisone taper, improved but still present. Radiating down the leg arm. Previously had tingling in the left hand but resolved. Taking over the counter ibuprofen. Past medical history, appointments, medications, allergies reviewed. Previous Medical History PAST MEDICAL HISTORY Diagnosis Date - NEGATIVE HISTORY OF Previous Surgical History PAST SURGICAL HISTORY Procedure Laterality Date - OPEN FIXATN PROX END/NECK FEMUR FX 1993 ORIF femur - REMOVAL OF TONSILS,<12 Y/O 1985 Tonsillectomy Family History FAMILY HISTORY Problem Relation Age of Onset - Diabetes Mother - Ischemic Heart Disease Mother - Diabetes Father - Ischemic Heart Disease Father - Stroke Father - Diabetes Brother - Diabetes Maternal Grandmother - Diabetes Maternal Grandfather - Emphysema Maternal Grandfather - Cancer Maternal Uncle esophageal, lung , lymph Patient Allergies ALLERGIES No Known Allergies Current Medications Current Outpatient Medications on File Prior to Visit Medication Sig - OMEPRAZOLE (PRILOSEC ORAL) Take by mouth. - IBUPROFEN ORAL Take by mouth. - cyclobenzaprine (FLEXERIL) 10 mg tablet Take 1 tablet by mouth three times daily as needed. (Patient not taking: Reported on 06/20/2020 ) No current facility-administered medications on file prior to visit. Social History Social History Tobacco Use - Smoking status: Former Smoker Types: Cigars - Smokeless tobacco: Never Used - Tobacco comment: occasional cigar smoker Substance Use Topics - Alcohol use: Yes Comment: socially - Drug use: No REVIEW OF SYSTEMS: as above ? Reviewed relevant PMHx, PSHx, Social Hx, current medications and allergies. EXAM: BP 112/82 Pulse 82 Temp 37 ?C (98.6 ?F) (Left Tympanic) Resp 16 Ht 171.5 cm (5' 7.5) Wt 97.5 kg (215 lb) BMI 33.18 kg/m? General Appearance: Well appearing, alert, in no acute distress, well-hydrated, well nourished. and Overweight. Head: Normocephalic, no masses, lesions, tenderness or abnormalities. Eyes: Anicteric sclera. Pupils are equally round and reactive to light. Extraocular movements are intact. . Ears: External ears normal, canals clear. Nose/Sinuses: Nares normal, septum midline, mucosa normal, no drainage or sinus tenderness. Oropharynx: Lips, mucosa, and tongue normal, teeth and gums normal, oropharynx normal. Neck: Supple, no adenopathy; thyroid symmetric, normal size, no bruits. Lungs: Lungs clear to auscultation. No wheezing, rhonchi, rales.. Heart: RRR without murmur, gallop, or rubs. No ectopy. Abdomen: Normal abdominal exam, Abdomen soft, non-tender. Bowel sounds normal. No masses, organomegaly. Musculoskeletal: Neck: no pain with palpation of the cervical spine. Some increased pain when neck rotates to the left and with flexion. Shoulder: Location: Left Redness: No. Warmth: No. Tenderness to palpation: No. Swelling: No. Range of motion: intact Empty can test: negative Singh: negative Health Maintenance List DEPRESSION SCREENING Completed HEPATITIS C SCREENING Completed HIV SCREENING Completed DTAP,TDAP,TD(1 - Tdap) Completed ONE PNEUMOVAX PRIOR TO AGE 65 Completed LIPID SCREEN Completed INFLUENZA(1) due on 10/15/2020 [employer]EN[employer]OCCAL CONJUGATE Completed Data reviewed None available ASSESSMENT/PLAN: 1. Encounter to establish care - ICD9: V65.8, ICD10: Z76.89 (primary diagnosis) - Now established with Dr. Graham. 2. Cervical radiculopathy - ICD9: 723.4, ICD10: M54.12 - No trauma. Discussed joint rest, gentle stretching, use of moist heat. See PHYSICAL THERAPY. - CONSULT TO PHYSICAL THERAPY - XR CERV GENERAL 2V AP/LAT - CYCLOBENZAPRINE 10 MG TABLET 3. Screening for lipid disorders - ICD9: V77.91, ICD10: Z13.220 - LIPID PANEL BASIC 4. Screening for diabetes mellitus - ICD9: V77.1, ICD10: Z13.1 - COMP METABOLIC PANEL Aidan Jackson APRN.INSPECTOR SOLDERING Get labs, if okay, fine to follow up yearly and as needed. This note was partly generated using FID3 voice recognition dictation and may contain some misspelled or inaccurate words missed on review. Referring Provider: S (more content not included)... Normal [facility] MIRTHANon 07-11-2020 CNPN Telephone (FAMPWS) CÉSAR DANIEL ([id number]) 1975 M Date Time Provider Department 07/11/20 AIDAN JACKSON (MIRTHA) MAXI During your visit today, we recorded the following information about you: Aidan Jackson APRN.CNP 07/11/2020 2:42 PM Signed Please inform patient that neck x-ray just shows some mild arthritis. Continue with plan as discussed. ELLEN Pedraza Ma 07/11/2020 3:05 PM Signed Pt was left a vm to return call. Katiana Pierre Ma 07/16/2020 11:12 AM Signed Letter mailed to pt home of results. Katiana Pierre MA Allergies As of Date: 07/11/2020 (No Known Allergies) Date Reviewed: 07/11/2020 Reviewed by: Aidan Koch) Luis Miguel - Fully Assessed Reason for Visit: Results [95] Prescriptions as of 07/11/2020 Sig: CYCLOBENZAPRINE 10 MG TABLET Take 1 tablet by mouth three * IBUPROFEN ORAL Take by mouth. PRILOSEC ORAL Take by mouth. Problem List As Of Date 07/11/2020 Noted Resolved ENLARGEMENT LYMPH NODES [R59.9] 06/13/2006 Letter Text Encounter Status:Closed by KATIANA PIERRE MA on 07/16/20 Normal [facility] XR CERVICAL 2V AP/LATon 06-17 XR CERVICAL 2V AP/LAT * * *Final Report* * * DATE OF EXAM: Jul 11 2020 1:03PM WOX [id number] - XR CERVICAL 2V AP/LAT / PROCEDURE REASON: Cervical radiculopathy * * * * Physician Interpretation * * * * EXAMINATION: XR CERVICAL 2V AP/LAT HISTORY: Neck pain that radiates down the left shoulder x 1 month. Negative injury. Cervical radiculopathy. TECHNIQUE: XR CERVICAL 2V AP/LAT Laterality: NOT APPLICABLE Number of different views (projections): 2 M: XB_1 COMPARISON: There are no prior relevant examinations available for comparison. RESULT: 2 views of the cervical spine demonstrate mild interspace narrowing with marginal spurring at C6-7 and C7-T1. There are no vertebral body compression deformities and alignment is well maintained. The atlantoaxial interval and craniocervical junction are intact. There is no prevertebral soft tissue abnormality. IMPRESSION: Mild degenerative changes as detailed in report. Crusher And Blender Operator: PSCB Transcribe Date/Time: Jul 11 2020 1:04P Dictated by : ARI VANG MD This examination was interpreted and the report reviewed and electronically signed by: ARI VANG MD on Jul 11 2020 1:05PM EST [id number] Normal [facility] XR Cervical spine AP and Lat [facility] 07-11-2020 IMPRESSION: Mild degenerative changes as detailed in report. Crusher And Blender Operator: PSCB Transcribe Date/Time: Jul 11 2020 1:04P Dictated by : ARI VANG MD This examination was interpreted and the report reviewed and electronically signed by: ARI VANG MD on Jul 11 2020 1:05PM EST DIVISION OF RADIOLOGY * * *Final Report* * * DATE OF EXAM: Jul 11 2020 1:03PM WOX [id number] - XR CERVICAL 2V AP/LAT / PROCEDURE REASON: Cervical radiculopathy * * * * Physician Interpretation * * * * EXAMINATION: XR CERVICAL 2V AP/LAT HISTORY: Neck pain that radiates down the left shoulder x 1 month. Negative injury. Cervical radiculopathy. TECHNIQUE: XR CERVICAL 2V AP/LAT Laterality: NOT APPLICABLE Number of different views (projections): 2 M: XB_1 COMPARISON: There are no prior relevant examinations available for comparison. RESULT: 2 views of the cervical spine demonstrate mild interspace narrowing with marginal spurring at C6-7 and C7-T1. There are no vertebral body compression deformities and alignment is well maintained. The atlantoaxial interval and craniocervical junction are intact. There is no prevertebral soft tissue abnormality. DIVISION OF RADIOLOGY Provider, [facility] - 07/11/2020 * * *Final Report* * * DATE OF EXAM: Jul 11 2020 1:03PM WOX [id number] - XR CERVICAL 2V AP/LAT / PROCEDURE REASON: Cervical radiculopathy * * * * Physician Interpretation * * * * EXAMINATION: XR CERVICAL 2V AP/LAT HISTORY: Neck pain that radiates down the left shoulder x 1 month. Negative injury. Cervical radiculopathy. TECHNIQUE: XR CERVICAL 2V AP/LAT Laterality: NOT APPLICABLE Number of different views (projections): 2 M: XB_1 COMPARISON: There are no prior relevant examinations available for comparison. RESULT: 2 views of the cervical spine demonstrate mild interspace narrowing with marginal spurring at C6-7 and C7-T1. There are no vertebral body compression deformities and alignment is well maintained. The atlantoaxial interval and craniocervical junction are intact. There is no prevertebral soft tissue abnormality. IMPRESSION IMPRESSION: Mild degenerative changes as detailed in report. Crusher And Blender Operator: PSCB Transcribe Date/Time: Jul 11 2020 1:04P Dictated by : ARI VANG MD This examination was interpreted and the report reviewed and electronically signed by: ARI VANG MD on Jul 11 2020 1:05PM EST [facility] Radiology Study observation (narrative) [facility] XR Cervical spine AP and Lat eralOrdered By: Ccalex Provider on 07-11-2020 [facility] CNOVon 06-20-2020 CNOV Office Visit (UCWSTR ) CÉSAR DANIEL ([id number]) 1975 M Date Time Provider Department 06/20/20 6:45 AM DANELLE JULIEN ([facility]) RUST During your visit today, we recorded the following information about you: Temperature Pulse Respiration Blood pressure 97.5 degrees 68/minute 16/minute 132/80 Weight 98.9 kg Danelle Julien APRN.CNP 06/20/2020 8:10 AM Signed Subjective HPI Nontoxic-appearing male presents urgent care chief complaint neck/shoulder pain. Duration of symptoms 1-1/2 weeks. Associated symptoms left shoulder pain radiating up into neck. Patient denies any injury. Patient states went to bed a week and a half ago with no discomfort woke up with shoulder and neck discomfort. History of back pain. History of shoulder pain this is similar. Denies any known injuries. Rates pain 6-7 out of 10. Pain is relieved by rest exacerbated by movement. Patient states if he rests the shoulder he has no pain if he moves his shoulder certain way he rates pain 6-7 out of 10. Patient works in a slaughterhouse. Denies any chest pain, shortness of breath, fevers, pleuritic pain, headache, neck pain, difficulty with range of motion of neck rashes abdominal pain fever or change in bowel or bladder habit. Past medical history prescription medication use allergies reviewed. .Patient presents with: Neck Pain: neck pain into right shoulder x 1 week History reviewed. No pertinent past medical history. PAST SURGICAL HISTORY Procedure Laterality Date - OPEN FIXATN PROX END/NECK FEMUR FX 1993 ORIF femur - REMOVAL OF TONSILS,<13 Y/O 1985 Tonsillectomy ALLERGIES Patient has no known allergies. MEDICATIONS IBUPROFEN ORAL Take by mouth. OMEPRAZOLE (PRILOSEC ORAL) Take by mouth. cyclobenzaprine (FLEXERIL) 10 mg tablet Take 1 tablet by mouth three times daily as needed. FAMILY HISTORY Problem Relation Age of Onset - Diabetes Brother - Diabetes Maternal Grandmother - Diabetes Maternal Grandfather - Diabetes Mother - Cancer Maternal Uncle esophageal, lung , lymph - Emphysema Maternal Grandfather - Ischemic Heart Disease Father - Stroke Father Social History Tobacco Use - Smoking status: Current Some Day Smoker Types: Cigars - Smokeless tobacco: Never Used - Tobacco comment: occasional cigar smoker Substance Use Topics - Alcohol use: Yes Comment: socially - Drug use: No BP 132/80 Pulse 68 Temp 36.4 ?C (97.5 ?F) (Tympanic) Resp 16 Wt 98.9 kg (218 lb) SpO2 97% Review of Systems Constitutional: Negative for chills, fever and malaise/fatigue. HENT: Negative for congestion, ear discharge, ear pain, sinus pain and sore throat. Eyes: Negative for blurred vision, pain, discharge and redness. Respiratory: Negative for cough, sputum production, shortness of breath and wheezing. Cardiovascular: Negative for chest pain. Gastrointestinal: Negative for abdominal pain, diarrhea, nausea and vomiting. Musculoskeletal: Positive for neck pain. Negative for myalgias. Skin: Negative for itching and rash. Neurological: Negative for dizziness and headaches. Objective Physical Exam Constitutional: He is oriented to person, place, and time and well-developed, well-nourished, and in no distress. No distress. Eyes: Pupils are equal, round, and reactive to light. Conjunctivae are normal. Cardiovascular: Normal rate and regular rhythm. Pulmonary/Chest: Effort normal and breath sounds normal. No accessory muscle usage. No tachypnea. No respiratory distress. Abdominal: Soft. There is no abdominal tenderness. Musculoskeletal: Left shoulder: Tenderness and pain present. No swelling, deformity, effusion, laceration, bony tenderness, crepitus or spasms. Normal range of motion. Normal strength. Normal pulse. Arms: Cervical back: Normal range of motion and neck supple. Comments: No erythema edema ecchymosis noted. No evidence of bacterial infection. Skin intact. No rash. Point tenderness. Pain relieved by rest. Lymphadenopathy: He has no cervical adenopathy. Neurological: He is alert and oriented to person, place, and time. Gait normal. Skin: Skin is warm and dry. No rash noted. He is not diaphoretic. ASSESSMENT/PLAN: 1. Acute pain of left shoulder - ICD9: 719.41, ICD10: M25.512 No injury. No decreased range of motion. Will not x-ray at this time. Will try prednisone burst. Patient will be established with primary care today. We will follow-up as needed. Patient was educated on supportive therapies. Patient will follow up with primary care provider as needed. Patient was instructed to immediately proceed to emergency room for any new, worsening, or symptoms lasting longer than anticipated. The patient's clinical presentation is otherwise unremarkable at this time. Based on exam and clinical finding, the patient is stable for discharge. Plan of care was discussed with patien (more content not included)... Normal [facility] Vital Signs Date Time Vital Sign Value Performing Clinician Robin collins 04-05-2022 10:39-0500 Body height 172.72 cm [facility] Work Phone: 04-05-2022 10:39-0500 Body mass index (BMI) [Ratio] 32.3 kg/m2 [facility] Work Phone: 04-05-2022 10:39-0500 Body temperature 97.8 [degF] [facility] Work Phone: 04-05-2022 10:39-0500 Body weight 96.61 kg [facility] Work Phone: 04-05-2022 10:39-0500 Diastolic blood pressure 95 mm[Hg] [facility] Work Phone: 04-05-2022 10:39-0500 Heart rate 90 /min [facility] Work Phone: 04-05-2022 10:39-0500 Respiratory rate 16 /min [facility] Work Phone: 04-05-2022 10:39-0500 SaO2% (BldA) [Mass fraction] 98 % [facility] Work Phone: 04-05-2022 10:39-0500 Systolic blood pressure 154 mm[Hg] [facility] Work Phone: Encounters Encounter Date Encounter Type Care Provider Facility Start: 08-22-2023 End: 08-22-2023 ambulatory [facility] [place] [facility] Start: 08-17-2023 End: 08-17-2023 ambulatory [facility] [place] [facility] Start: 08-09-2023 End: 08-09-2023 ambulatory No Primary Care Physician Facility:[facility] [place] Start: 04-05-2022 End: 04-05-2022 Emergency department patient visit [facility] Start: 07-11-2020 End: 07-11-2020 Subsequent hospital visit by physician [facility] Work Phone: Radiology Comment on above: Cervical radiculopat hy [M54.12] Procedures Date Procedure Procedure Detail Performing Clinician Start: 04-05-2022 Plain chest X-ray Start: 07-12-2020 Lipid 1996 panel - S radha or Plasma [facility] Work Phone: Start: 07-11-2020 Radex spine cervical 2 or 3 views Aidan Jackson APRN.CNP Work Phone: Plan of Treatment Date Care Activity Detail Author Start: 07-12-2025 Lipid panel Lipid Screening [facility] Start: 12-18-2023 Covid-19 Vaccine ( season) Covid-19 Vaccine ( season) [facility] Start: 12-18-2023 Influenza vaccination Influenza Vacc ine (#1) [facility] Start: 07-13-2023 Diabetes Screening Diabetes Screenin g [facility] Start: 01-22-2021 Screening for malign ant neoplasm of colon [facility] Start: 01-22-1995 Hepatitis B Vaccine (1 of 3 - 19+ 3-dose series) Hepatitis B Vaccine (1 of 3 - 19+ 3-dose series) [facility] Start: 01-22-1995 Urine microalbumin profile DTaP,Tdap,Td Vaccine (1 - Tdap) [facility] Start: 01-22-1994 Anxiety Screening Anxiety Screening [facility] Start: 01-22-1994 Depression Screening Depression Scre ening [facility] Start: 01-22-1994 Hepatitis C screening Hepatitis C Sc [place] [facility] Start: 01-22-1994 HIV screening HIV Screening [facility] Patient Education ED Chest Wall Contusion [facility] Work Phone: Patient referral [facility] Work Phone: Payers Date Payer Category Payer Unknown [id number] 2023 Self-pay [id number] 2023 Unknown [id number] 2020 Unknown [employer] PPO [id number] 2020-Present [phone] [facility] [id number] [place] [address] PPO [id number] Unknown JOHANADINA [id number] Unknown [id number] Unknown [id number] Unknown [id number] Unknown [id number] Social History Date Type Detail Facility Start: 04-05-2022 Tobacco smoking stat [facility] Unknown if ever smoked [facility] Work Phone: Start: 1975 Sex Assigned At Male W [facility] Work Phone: Start: 07-11-2020 [facility] History of tobacco use Current smoker [facility] History of tobacco use Cigar Smoker [facility] Start: 07-11-2020 Tobacco use and exposure Smokeless tobacco non-user [facility] Start: 07-11-2020 Alcoholic beverage intake Current drinker of alcohol (finding) [facility] Start: 03-23-2020 End: 07-11-2020 History of Social function [facility] Start: 03-23-2020 End: 07-11-2020 Tobacco use panel [facility] National Score (1-100), lower number is lower risk Not on file [facility] Start: 02-23-2016 Tobacco Comment occasional cigar smo ker [facility] Start: 1975 Sex assigned at Not on file [facility] Start: 06-11-2020 End: 07-11-2020 Exposure to SARS-CoV-2 (event) Not sure [facility] Mental Status Date Assessment Result Facility 04-05-2022 Cognitive function Level Of Cons ciousness Awake;Alert;Appropriate;Follow s Commands [facility] Work Phone: Clinical Notes 06-20-2020 to 12-12-2020 Maria Andino (Rt), [facility] - 07/11/2020 12:50 PM EDT Note Date & Type Note Facility 12-12-2020 Note HNO ID: [id number] Author: Mikhail Daniel PT Service: ? Author Type: Physical Therapist Type: Progress Notes Filed: 12/12/2020 11:06 AM Note Text: 12/12/2020 [facility] PHYSICAL THERAPY DISCONTINUANCE OF CARE Plan of Care Period: Start of Care Date: 08/25/20 Last Visit Date: 09/23/2020 Therapy Program: The following is a summary of the interventions provided for this episode of care; Therapeutic exercise Assessment: Based on most recent visit, patient was progressing as expected toward functional goals based on home exercise program compliance. Unable to formally assess goal achievement, as patient has not returned to therapy or scheduled additional follow-up appointments. Reason for Discontinuation of Care: Patient has not returned to therapy or scheduled additional follow-up appointments. Mikhail Daniel PT [facility] 09-23-2020 Note HNO ID: [id number] Author: Mikhail Daniel PT Service: ? Author Type: Physical Therapist Type: Progress Notes Filed: 09/23/2020 3:57 PM Note Text: Episode Visit Count: 4 Therapist That Will Oversee The Plan Of Care: Mikhail Daniel Start of Care Date: 08/25/20 Onset Date: 07/26/20 Patient Identified by Name and Date of : Yes REHABILITATION AND SPORTS THERAPY PHYSICAL THERAPY TREATMENT NOTE ASSESSMENT: César Daniel demonstrated some neck stiffness on the L. The patient will continue to benefit from ongoing skilled physical therapy for progression towards therapy goals. PLAN FOR NEXT VISIT: Assess pt SUBJECTIVE: Patient Reason for Visit: Pt states that when he is still then his pain will come on in the neck. Pain: Pain Pain Location: Neck - Left Post Treatment Pain Post Treatment Pain Location: Neck - Left OBJECTIVE MEASURES WITH LEVEL OF FUNCTION: UPA onto L C5/C6 facet joint causes some faint radicular pain and reveals some hypermobility of the joint Cervical flexion WNL TREATMENT: Therapeutic Exercise: 1: L SB cervical iso 3x10 reps holding 5 sec each 2: Resisted R cervical rotations GTB 3x12 reps 3: Row at machine 3 plates 6x10 reps 4: Cervical SB iso at 40 deg of SB x5 reps holding 3 sec Skilled Intervention: Patient was educated in proper exercise technique and purpose for exercises. Skilled judgment was provided in selection of appropriate interventions. Provided written instruction for home exercise program to facilitate proper performance and compliance. Billing: [facility]: Therapeutic Exercise ([id number]): 1:1 time: 38 minutes (3 units: 38-52 mins) Total time / Length of visit: 38 minutes Mikhail Daniel PT [facility] 09-16-2020 Note HNO ID: [id number] Author: Mikhail Daniel PT Service: ? Author Type: Physical Therapist Type: Progress Notes Filed: 09/16/2020 4:01 PM Note Text: Episode Visit Count: 3 Therapist That Will Oversee The Plan Of Care: Mikhail Daniel Start of Care Date: 08/25/20 Onset Date: 07/26/20 Patient Identified by Name and Date of : Yes REHABILITATION AND SPORTS THERAPY PHYSICAL THERAPY TREATMENT NOTE ASSESSMENT: César Daniel demonstrated pain in the sub-occipital muscles The patient will continue to benefit from ongoing skilled physical therapy for progression towards therapy goals. PLAN FOR NEXT VISIT: Assess thoracic spine mobility. Trap strength. SUBJECTIVE: Patient Reason for Visit: Pt states bhe did a lot of overhead activities and neck extension without increased radicular symptoms this past week Pain: Pain Pain Location: Neck - Left Post Treatment Pain Post Treatment Pain Location: Neck - Left OBJECTIVE MEASURES WITH LEVEL OF FUNCTION: TREATMENT: Therapeutic Exercise: 1: Neck flexion stretch 3x30 seconds 2: Prone opposite arm leg x10 each side Skilled Intervention: Patient was educated in proper exercise technique and purpose for exercises. Provided written instruction for home exercise program to facilitate proper performance and compliance. Correct performance of therapeutic exercises was facilitated with verbal and visual cuing. Manual Therapy: 1: Pt in supine with praspinal pressure firm pressure 2: C2 mob grade 2 x20 pt in supine 3: S-O release x5 min 4: Deep pressure to multifidi bilaterally pt in supine 5: Self massage using ball vs wall x5 min Skilled Intervention: Manual skills to improve joint mobility, ROM, and decrease pain. Utilized anatomy knowledge of the therapist, and assessment of patient's response to intervention. Billing: [facility]: Therapeutic Exercise ([id number]): 1:1 time: 8 minutes (1 unit: 8-22 mins) Manual Therapy (98291): 1:1 time: 31 minutes (2 units: 23-37 mins) Total time / Length of visit: 39 minutes Mikhail Daniel PT [facility] 09-09-2020 Note HNO ID: [id number] Author: Mikhail Daniel PT Service: ? Author Type: Physical Therapist Type: Progress Notes Filed: 09/09/2020 4:06 PM Note Text: Episode Visit Count: 2 Therapist That Will Oversee The Plan Of Care: Mikhail Daniel Start of Care Date: 08/25/20 Onset Date: 07/26/20 Patient Identified by Name and Date of : Yes REHABILITATION AND SPORTS THERAPY PHYSICAL THERAPY TREATMENT NOTE ASSESSMENT: César Daniel demonstrated increased radicular pain with prone DNE testing. The patient will continue to benefit from ongoing skilled physical therapy for progression towards therapy goals. PLAN FOR NEXT VISIT: Assess symptoms and reaction to exercise. Try SNAG with extension. SUBJECTIVE: Patient Reason for Visit: Pt states that he does get the tingling in the hand a little less. Pt feels 50% improved. Pain: Pain Pain Level: 1 Pain Location: Neck - Left Post Treatment Pain Post Treatment Pain Level: 2 Post Treatment Pain Location: Neck - Left Post Treatment Pain Description: Aching OBJECTIVE MEASURES WITH LEVEL OF FUNCTION: L side-bending and L rotation is limited in the cervical region and overpressure with L rotation brings on familiar symptoms. TREATMENT: Therapeutic Exercise: 1: DNF x30 seconds 2: DNE x30 seconds (Increased radicular symptoms) 3: R side-lying, Cervical L SB 2x10 reps 4: R cervical SB in seated position Skilled Intervention: Patient was educated in proper exercise technique and purpose for exercises. Correct performance of therapeutic exercises was facilitated with verbal and visual cuing. Billing: [facility]: Therapeutic Exercise ([id number]): 1:1 time: 40 minutes (3 units: 38-52 mins) Total time / Length of visit: 40 minutes Mikhail Daniel PT [facility] 08-25-2020 Note HNO ID: [id number] Author: Mikhail Daniel PT Service: ? Author Type: Physical Therapist Type: Progress Notes Filed: 08/25/2020 3:55 PM Note Text: Episode Visit Count: 1 Therapist That Will Oversee The Plan Of Care: Mikhail Daniel Start of Care Date: 08/25/20 Onset Date: 07/26/20 Patient Identified by Name and Date of : Yes REHABILITATION AND SPORTS THERAPY PHYSICAL THERAPY EVALUATION PLAN OF CARE: Assessment: César Daniel presents with the chief complaint of L sided neck pain with radicular symptoms. Pt demonstrates a positive Spurling's on the L and pain relief with opening L cervical facet joints. C8 dermatome and myotome affected on the L compared to R. He presents with impairments of decreased neck ROM, difficulty with work duties due to pain and fair posture. He may benefit from skilled therapy services to improve the above mentioned impairments. Prognosis: Good Good due to: current objective clinical presentation;good overall health status;within-session changes at evaluation Goals for Episode of Care: created on 08/25/20 through 10/06/20 Independent in a Home Exercise Program. Restore pain free cervical ROM to WNL to allow for ease of work dtuies. Pt will be able to perform all work duties without increased symptoms in 6 weeks Patient Goals: Pt wants to manage symptoms. Planned Interventions, Frequency, and Duration: Current Frequency: 1x/week Duration: 4 weeks Total Number of Visits Planned: 4 Planned Treatment Interventions: Therapeutic exercise (85841);Neuromuscular re-education (41966);Manual therapy (39917);Therapeutic activities (33631);Patient/Family/Caregive r Education PLAN FOR NEXT VISIT: Progress opening L cervical facets manually and with exercise Patient demonstrates good understanding of plan of care and treatment. The above goals and plan of care were discussed and agreed upon by patient/family. SUBJECTIVE: César Daniel is a 45 year old male seen today for Pt states that if he looks up it will go down the L arm. Pt works for maintainence. Pt woke up and felt something and then he had constant pain. Pt states that the 4-5th fingers usually feel numb. Patient Goals: Pt wants to manage symptoms. Prior Level of Function: Independent without limitations Intake Information: Prescription present [place] Vertebral Fracture Clinical Reasoning: No identified risk factors Cancer Clinical Reasoning: No identified risk factors. Infection Clinical Reasoning: No identified risk factors. Cervical Arterial Dysfunction Clinical Reasoning: No identified risk factors [place] - Cervical Cancer Clinical Reasoning: No identified risk factors. Infection Clinical Reasoning: No identified risk factors. Cervical Arterial Dysfunction Clinical Reasoning: No identified risk factors Pain: Pain Pain Level: 3 Pain Location: Neck - Left Description: Sharp Post Treatment Pain Post Treatment Pain Level: (Not rated) Post Treatment Pain Location: Neck - Left;Arm - Left Post Treatment Pain Description: Aching PROMIS Scales T-scores: mean of general population = 50. 5 points is clinically meaningfully difference Percentiles provide an indication of how the patient's score ranks in relation to the general population. Higher percentile rankings indicate better function/quality of life. 50th percentile is the average of the general population and indicates half of respondents had a worse score. T-scores: mean of general population = 50. 5 points is clinically meaningfully difference Percentiles provide an indication of how the patient's score ranks in relation to the general population. Higher percentile rankings indicate better function/quality of life. 50th percentile is the average of the general population and indicates half of respondents had a worse score. OBJECTIVE MEASURES WITH LEVEL OF FUNCTION: Sensation - Cervical Spine Cervical Spine Sensation: Dermatomes Cervical Spine Sensation - Dermatomes: C8 5th Digit Cervical Spine ROM Cervical ROM : Limitation AROM Cervical Flexion AROM: Normal Cervical Extension AROM: Minimal limitation;Peripheralizing Cervical Side-Bend Right AROM: Normal;Decreased pain Cervical Side-Bend Left AROM: Minimal limitation;Peripheralizing Cervical Rotation Right AROM: Normal Cervical Rotation Left AROM: Normal UE AROM R UE AROM: WNL L UE AROM: WNL Spine Joint Mobility Spine Joint Mobility : Cervical/Thoracic Joint Mobility - C4: WNL Joint Mobility - C5: WNL Joint Mobility - C6: Hypermobile Joint Mobility - C7: Hypermobile Joint Mobility - T1: WNL Joint Mobility - T2: WNL Joint Mobility - T3: WNL Joint Mobility - T4: WNL Joint Mobility - T5: WNL UE and Cervical Strength Strength Tested: Myotome Cervical/Shoulder R UE Strength: Grossly 5/5 L UE Strength: Grossly 5/5 L Shoulder Abduction (C5): 4+/5 L Thumb Extension (C8): 4+/5 Special Tests - Cervical Cervical Spe (more content not included)... [facility] 07-11-2020 Note HNO ID: [id number] Author: Bernardo Smith (Rt) Service: ? Author Type: Sausage Stringer Type: Progress Notes Filed: 07/11/2020 1:03 PM Note Text: Radiology Service Progress Note PATIENT NAME: César Daniel DATE OF SERVICE: July 11, 2020 TIME: 12:57 PM PATIENT IDENTITY VERIFICATION COMPLETED USING TWO (2) IDENTIFIERS: Name and Date of confirmed by patient verbally. FALL SCREENING: Has the patient had 2 falls in the last year or 1 fall with injury or currently using an Ambulatory Assistive Device (Walker, Cane, Wheelchair, Crutches, etc.)? No PATIENT GENDER DATA: Male PATIENT RELEVANT IMPLANT DATA REVIEWED: Yes RADIOLOGY DEPARTMENT: General X-ray: Exam(s) Completed: Spine X-Ray(s): Cervical AP / LAT PERIPHERAL IV DATA: Not applicable SIGNED BY: RT Luis July 11, 2020 12:57 PM [facility] 07-11-2020 Note HNO ID: [id number] Author: Aidan Jackson Service: ? Author Type: Nurse Practitioner Type: Progress Notes Filed: 07/11/2020 12:48 PM Note Text: Chief Complaint Patient presents with: Establish Care HPI César Daniel is a 45 year old male who presents here today for establish care visit. Not followed by a previous PCP. Believes that he had a tdap about 6 years ago. Got it at [facility]. Main complaint is neck pain. Started about 1 month ago. Nothing that occurred. Woke up with it. Went to [facility]. Was given prednisone taper, improved but still present. Radiating down the leg arm. Previously had tingling in the left hand but resolved. Taking over the counter ibuprofen. Past medical history, appointments, medications, allergies reviewed. Previous Medical History PAST MEDICAL HISTORY Diagnosis Date - NEGATIVE HISTORY OF Previous Surgical History PAST SURGICAL HISTORY Procedure Laterality Date - OPEN FIXATN PROX END/NECK FEMUR FX 1993 ORIF femur - REMOVAL OF TONSILS,<12 Y/O 1986 Tonsillectomy Family History FAMILY HISTORY Problem Relation Age of Onset - Diabetes Mother - Ischemic Heart Disease Mother - Diabetes Father - Ischemic Heart Disease Father - Stroke Father - Diabetes Brother - Diabetes Maternal Grandmother - Diabetes Maternal Grandfather - Emphysema Maternal Grandfather - Cancer Maternal Uncle esophageal, lung , lymph Patient Allergies ALLERGIES No Known Allergies Current Medications Current Outpatient Medications on File Prior to Visit Medication Sig - OMEPRAZOLE (PRILOSEC ORAL) Take by mouth. - IBUPROFEN ORAL Take by mouth. - cyclobenzaprine (FLEXERIL) 10 mg tablet Take 1 tablet by mouth three times daily as needed. (Patient not taking: Reported on 06/20/2020 ) No current facility-administered medications on file prior to visit. Social History Social History Tobacco Use - Smoking status: Former Smoker Types: Cigars - Smokeless tobacco: Never Used - Tobacco comment: occasional cigar smoker Substance Use Topics - Alcohol use: Yes Comment: socially - Drug use: No REVIEW OF SYSTEMS: as above ? Reviewed relevant PMHx, PSHx, Social Hx, current medications and allergies. EXAM: BP 112/82 Pulse 82 Temp 37 ?C (98.6 ?F) (Left Tympanic) Resp 16 Ht 171.5 cm (5' 7.5) Wt 97.5 kg (215 lb) BMI 33.18 kg/m? General Appearance: Well appearing, alert, in no acute distress, well-hydrated, well nourished. and Overweight. Head: Normocephalic, no masses, lesions, tenderness or abnormalities. Eyes: Anicteric sclera. Pupils are equally round and reactive to light. Extraocular movements are intact. . Ears: External ears normal, canals clear. Nose/Sinuses: Nares normal, septum midline, mucosa normal, no drainage or sinus tenderness. Oropharynx: Lips, mucosa, and tongue normal, teeth and gums normal, oropharynx normal. Neck: Supple, no adenopathy; thyroid symmetric, normal size, no bruits. Lungs: Lungs clear to auscultation. No wheezing, rhonchi, rales.. Heart: RRR without murmur, gallop, or rubs. No ectopy. Abdomen: Normal abdominal exam, Abdomen soft, non-tender. Bowel sounds normal. No masses, organomegaly. Musculoskeletal: Neck: no pain with palpation of the cervical spine. Some increased pain when neck rotates to the left and with flexion. Shoulder: Location: Left Redness: No. Warmth: No. Tenderness to palpation: No. Swelling: No. Range of motion: intact Empty can test: negative Singh: negative Health Maintenance List DEPRESSION SCREENING Completed HEPATITIS C SCREENING Completed HIV SCREENING Completed DTAP,TDAP,TD(1 - Tdap) Completed ONE PNEUMOVAX PRIOR TO AGE 65 Completed LIPID SCREEN Completed INFLUENZA(1) due on 10/15/2020 MENINGOCOCCAL CONJUGATE Completed Data reviewed None available ASSESSMENT/PLAN: 1. Encounter to establish care - ICD9: V65.8, ICD10: Z76.89 (primary diagnosis) - Now established with Dr. Graham. 2. Cervical radiculopathy - ICD9: 723.4, ICD10: M54.12 - No trauma. Discussed joint rest, gentle stretching, use of moist heat. See PHYSICAL THERAPY. - CONSULT TO PHYSICAL THERAPY - XR CERV GENERAL 2V AP/LAT - CYCLOBENZAPRINE 10 MG TABLET 3. Screening for lipid disorders - ICD9: V77.91, ICD10: Z13.220 - LIPID PANEL BASIC 4. Screening for diabetes mellitus - ICD9: V77.1, ICD10: Z13.1 - COMP METABOLIC PANEL Aidan Luis Miguel, SH[employer]IGHTER.INSPECTOR [employer]DERING Get labs, if okay, fine to follow up yearly and as needed. This note was partly generated using fabrikon voice recognition dictation and may contain some misspelled or inaccurate words missed on review. [facility] 07-11-2020 History of Presen t illness Narrative Radiology Service Progress Note PATIENT NAME: César Daniel DATE OF SERVICE: July 11, 2020 TIME: 12:57 PM PATIENT IDENTITY VERIFICATION COMPLETED USING TWO (2) IDENTIFIERS: Name and Date of confirmed by patient verbally. FALL SCREENING: Has the patient had 2 falls in the last year or 1 fall with injury or currently using an Ambulatory Assistive Device (Walker, Cane, Wheelchair, Crutches, etc.)? No PATIENT GENDER DATA: Male PATIENT RELEVANT IMPLANT DATA REVIEWED: Yes RADIOLOGY DEPARTMENT: General X-ray: Exam(s) Completed: Spine X-Ray(s): Cervical AP / LAT PERIPHERAL IV DATA: Not applicable SIGNED BY: RT Luis July 11, 2020 12:57 PM documented in this encounter [facility] 06-20-2020 Note HNO ID: [id number] Author: Danelle (Mirtha) Anaya Service: ? Author Type: Nurse Practitioner Type: Progress Notes Filed: 06/20/2020 8:10 AM Note Text: Subjective HPI Nontoxic-appearing male presents urgent care chief complaint neck/shoulder pain. Duration of symptoms 1-1/2 weeks. Associated symptoms left shoulder pain radiating up into neck. Patient denies any injury. Patient states went to bed a week and a half ago with no discomfort woke up with shoulder and neck discomfort. History of back pain. History of shoulder pain this is similar. Denies any known injuries. Rates pain 6-7 out of 10. Pain is relieved by rest exacerbated by movement. Patient states if he rests the shoulder he has no pain if he moves his shoulder certain way he rates pain 6-7 out of 10. Patient works in a slaughterhouse. Denies any chest pain, shortness of breath, fevers, pleuritic pain, headache, neck pain, difficulty with range of motion of neck rashes abdominal pain fever or change in bowel or bladder habit. Past medical history prescription medication use allergies reviewed. .Patient presents with: Neck Pain: neck pain into right shoulder x 1 week History reviewed. No pertinent past medical history. PAST SURGICAL HISTORY Procedure Laterality Date - OPEN FIXATN PROX END/NECK FEMUR FX 1993 ORIF femur - REMOVAL OF TONSILS,<13 Y/O 1985 Tonsillectomy ALLERGIES Patient has no known allergies. MEDICATIONS IBUPROFEN ORAL Take by mouth. OMEPRAZOLE (PRILOSEC ORAL) Take by mouth. cyclobenzaprine (FLEXERIL) 10 mg tablet Take 1 tablet by mouth three times daily as needed. FAMILY HISTORY Problem Relation Age of Onset - Diabetes Brother - Diabetes Maternal Grandmother - Diabetes Maternal Grandfather - Diabetes Mother - Cancer Maternal Uncle esophageal, lung , lymph - Emphysema Maternal Grandfather - Ischemic Heart Disease Father - Stroke Father Social History Tobacco Use - Smoking status: Current Some Day Smoker Types: Cigars - Smokeless tobacco: Never Used - Tobacco comment: occasional cigar smoker Substance Use Topics - Alcohol use: Yes Comment: socially - Drug use: No BP 132/80 Pulse 68 Temp 36.4 ?C (97.5 ?F) (Tympanic) Resp 16 Wt 98.9 kg (218 lb) SpO2 97% Review of Systems Constitutional: Negative for chills, fever and malaise/fatigue. HENT: Negative for congestion, ear discharge, ear pain, sinus pain and sore throat. Eyes: Negative for blurred vision, pain, discharge and redness. Respiratory: Negative for cough, sputum production, shortness of breath and wheezing. Cardiovascular: Negative for chest pain. Gastrointestinal: Negative for abdominal pain, diarrhea, nausea and vomiting. Musculoskeletal: Positive for neck pain. Negative for myalgias. Skin: Negative for itching and rash. Neurological: Negative for dizziness and headaches. Objective Physical Exam Constitutional: He is oriented to person, place, and time and well-developed, well-nourished, and in no distress. No distress. Eyes: Pupils are equal, round, and reactive to light. Conjunctivae are normal. Cardiovascular: Normal rate and regular rhythm. Pulmonary/Chest: Effort normal and breath sounds normal. No accessory muscle usage. No tachypnea. No respiratory distress. Abdominal: Soft. There is no abdominal tenderness. Musculoskeletal: Left shoulder: Tenderness and pain present. No swelling, deformity, effusion, laceration, bony tenderness, crepitus or spasms. Normal range of motion. Normal strength. Normal pulse. Arms: Cervical back: Normal range of motion and neck supple. Comments: No erythema edema ecchymosis noted. No evidence of bacterial infection. Skin intact. No rash. Point tenderness. Pain relieved by rest. Lymphadenopathy: He has no cervical adenopathy. Neurological: He is alert and oriented to person, place, and time. Gait normal. Skin: Skin is warm and dry. No rash noted. He is not diaphoretic. ASSESSMENT/PLAN: 1. Acute pain of left shoulder - ICD9: 719.41, ICD10: M25.512 No injury. No decreased range of motion. Will not x-ray at this time. Will try prednisone burst. Patient will be established with primary care today. We will follow-up as needed. Patient was educated on supportive therapies. Patient will follow up with primary care provider as needed. Patient was instructed to immediately proceed to emergency room for any new, worsening, or symptoms lasting longer than anticipated. The patient's clinical presentation is otherwise unremarkable at this time. Based on exam and clinical finding, the patient is stable for discharge. Plan of care was discussed with patient. Patient verbalizes understanding and agrees to plan of care. This note was generated using FID3 software. It may contain errors in wording, punctuation, or spelling. Danelle Julien APRN.[facility] Evaluation note No assessment inform ation available [facility] Work Phone: Hospital Discharge instructions Additional Instructions Ice to chest wall and any sore areas. Motrin for pain and inflammation and Tylenol for pain. You will probably be most sore tomorrow and then this should progressively start getting better. Follow-up with the now clinic as needed. You may return to work. [facility] Work Phone: Summary Purpose Family History No Family History Records FoundNo Family History Records Found Advance Directives Advance Directive Response Recorded Date/ Time Advance Directives No February 3:25pm Living Will No April 05, 2 022 11:43am Power of Stock Supervisor No April 05, 2022 11:43am Chief Complaint and Reason for Visit Chief Complaint chest injury Additional Source Comments (unrecognized sect ion and content) No Status Records FoundNo Status Records Found INFORMATION SOURCE (unrecogn ized section and content) DATE CREATED AUTHOR 05/17/2021 [facility] DATE CREATED AUTHOR AUTHOR'S ERIN LU 09/28/2023 [facility] Goals (unrecognized section and content) Goals may be documented in a n alternate section Source Comments (unrecognize d section and content) In the event this informatio n is protected by the Federal Confidentiality of Alcohol and Drug Abuse Patient Records regulations: The Federal rules restrict any use of the information to criminally investigate or prosecute any alcohol or drug abuse patient.[facility] FOR RECORDS PERTAINING TO PATIENTS WHO ARE OR HAVE BEEN ENROLLED IN A CHEMICAL DEPENDENCY/SUBSTANCEABUSE PROGRAM, SOME INFORMATION MAY BE OMITTED. This clinical summary was aggregated from multiple sources. Caution should be exercised in using it in the provision of clinical care. This summary normalizes information from multiple sources, and as a consequence, information in this document may materially change the coding, format and clinical context of patient data. In addition, data may be omitted in some cases. CLINICAL DECISIONS SHOULD BE BASED ON THE PRIMARY CLINICAL RECORDS. [facility]. provides no warranty or guarantee of the accuracy or completeness of information in this document.
--- NOTE | 2024-10-06 21:12 | ED.VIS.LOWEX ---
HPI History of Present Illness Chief Complaint: Lower Extremity Injury Informant: patient and family Narrative Narrative: Injury right knee 2 days ago. Walked into a steel bench. Increasing swelling. No medications taken. Using a cane since the incident. No allergies. No history of stomach ulcers or kidney injury. Per family he reports he does not like taking medications. [facility] Medical History Laceration of right hand Home Medications ?Medication ?Instructions ?Recorded ?Last Taken ?Type NK 04/05/22 Unknown History Allergy/AdvReac Type Severity Reaction Status Date / Time No Known Allergies Allergy Verified 10/06/24 20:01 Surgical History History of tonsillectomy and adenoidectomy Social History Smoking Status: Never smoker ROS ROS ED Constitutional Constitutional ED: Denies fever(s) Cardiovascular Cardiovascular: Denies chest pain Respiratory/Chest Respiratory/Chest: Denies cough Gastrointestinal Gastrointestinal: Denies diarrhea or vomiting Musculoskeletal Musculoskeletal: Reports none and other Details: Right knee injury. Integumentary Denies rash or wounds Neurologic Neurologic: Denies weakness EXAM Physical Exam Const Vital Signs: 10/06/24 20:01 Temperature 99.2 F H Temperature Source Oral Pulse Rate 99 Respiratory Rate 18 Blood Pressure 156/94 H Blood Pressure Mean 114 Pulse Ox 96 Oxygen Delivery Method Room Air Positive well nourished and well developed General Appearance ED: well developed HEENT normocephalic and atraumatic Eyes General Eye ED: Yes normal appearance of both eyes Neck full ROM Resp normal respiratory effort and normal air movement Cardio regular rate and regular rhythm GI soft to palpation Extremity full ROM Extremity Narrative: Right lower extremity: There is swelling suprapatellar with knee extensor mechanism intact. Minimal patellar tenderness. Negative varus and valgus. Negative Trey's. Soft compartments. Pulses intact distally. Neuro oriented x3 Skin no rashes or lesions noted and no wounds MDM MDM MDM Narrative Medical decision making narrative: Interventions / MDM: Differential diagnosis: Contusion, hematoma, Diagnosis considered but do not suspect: Fracture however x-ray negative. No clinical tendon injury. My EKG interpretation: N/A Imaging independently reviewed and interpreted by myself: 4 view x-ray right knee: No fracture noted. Suprapatellar hematoma. This also read by radiology. External documents reviewed: N/A Test considered but not ordered:N/A ED course: Nursing protocol obtain images. Results interpreted myself and read by radiology no fractures hematoma above the knee noted. His extensor mechanism intact. Alex wrap placed discussed continue RICE therapy using Tylenol Motrin as needed. Outpatient follow-up given. All questions were answered. Re-evaluation: stable Disposition discussed with patient/family/significant other: Patient and family Case discussed with consulting clinician: N/A This note was generated with [employer] dictation software. It may contain incorrect words, spelling, and punctuation that were not noted in checking the note before signing. Radiography Diagnostic Testing: Clinical Impression(s) from Imaging Studies Knee X-Ray 10/06/24 20:10 IMPRESSION: No acute fracture. Moderate-sized suprapatellar hematoma. Reading Location: [facility] Discharge Plan Triage Chief Complaint: Lower Extremity Injury ED Provider: Toñito Qureshi Dx/Rx/DC Orders Clinical Impression: Hematoma of right thigh, Injury of knee, right Instructions: Bruises (Contusions) Prescriptions: No Action NK Primary Care Provider: Care Physician,No Primary Referrals: Sarah Arango DO [Med Staff - Active Staff] - 1-2 Weeks Care Physician,No Primary [Primary Care Provider] - Activity Restrictions/Additional Instructions: Left knee x-ray negative for any fractures you have a hematoma above your knee. Your tendon is intact. Continue with the Alex wrap and ice and elevation. Use Tylenol or Motrin as needed. Print Language: Greenlandic Disposition Disposition: Home, Self Care Discharge Date/Time: 10/06/24 21:22
== END 2024-10-06 21:22 | disposition home or self-care (01) ==
PROVIDERS: Emergency Provider Emergency Medicine; Visit Provider Emergency Medicine
DX: S70.11XA Contusion of right thigh, initial encounter (principal); W22.09XA Striking against other stationary object, initial encounter; Y93.01 Activity, walking, marching and hiking
CPT/HCPCS: 73564; 99282